=== PATIENT | female | born 1935 ===

== ENCOUNTER 2023-07-11 09:58 | Outpatient (REF) | payer MEDICARE, OTHER, SELFPAY | END 2023-07-11 09:59 | disposition home or self-care (01) | LOC: HO.HOSX 09:58 | PROVIDERS: Visit Provider Orthopaedic Surgery | DX: M25.561 Pain in right knee (principal); Z96.651 Presence of right artificial knee joint; Z79.899 Other long term (current) drug therapy | CPT/HCPCS: 73562; 99212 ==

== ENCOUNTER 2023-07-11 10:11 | Outpatient (AMB) | payer MEDICARE, OTHER, SELFPAY ==
--- NOTE | 2023-07-11 10:24 | A.OFFVIS_ITS ---
Intake Vital Signs 07/11/23 10:31 Height 5 ft 1 in Weight 133 lb BMI 25.1 Intake Visit Reasons: S [employer]- Rt Knee TKA 06/2021 Intake Note: Ketty an 88 year old female presents today as a new patient to re-establish care with Dr. Gutiérrez s/p right knee TKA on 07/19/21. Patient reports here today for a routine check up. States she is doing well, denies any pain or discomfort. She continues with her home exercise program. She does not take any medicines for discomfort. She reports mild intermittent discomfort in her right knee. She denies any fevers or chills. Allergies meperidine [From Demerol] Allergy (Verified 07/11/23 10:32) Unknown Medication List - Last Reconciled 07/11/23 by Paulino Gutiérrez MD amlodipine 5 mg PO DAILY gemfibrozil 600 mg PO BID levothyroxine 88 mcg PO DAILY levothyroxine (Synthroid) 75 mcg PO DAILY metoprolol succinate ER 50 mg PO DAILY [facility] Surgical History (Updated 07/11/23 @ 10:33 by IMAN Lowery) History of total right knee replacement Social History (Updated 07/11/23 @ 10:33 by IMAN Lowery) Patient Tobacco Use Status: Never used Tobacco Current occupational status: retired Physical Exam Vital Signs: BMI result Body Mass Index 25.1 Const Other: Well-nourished well-developed very friendly female awake alert and oriented x3 in no acute distress Extrem Other: Bilateral lower extremity examination shows good capillary refill, no skin lesions noted, normal sensation light touch Right knee examination shows that the surgical incision is well healed, no erythema, full active extension and flexion to 120 degrees, her patella tracks well Results Reviewed Results Reviewed: X-rays of the patient's right knee taken today show a total knee arthroplasty in good position with no signs of loosening, no acute bony abnormalities Assessment & Plan Assessment & Plan (1) Right knee pain: Code(s): M25.561 - Pain in right knee Plan Ms. Khoury continues to do well after undergoing right total knee replacement surgery on 07/19/2021. She will continue with her home exercise program. She does know to take antibiotics before any dental work. She will contact me prior to her annual follow-up appointment should any questions or concerns arise. I spent 22 minutes in reviewing the patient's records and imaging studies, seeing the patient and documenting in the medical record. Orders: Orders XR knee RT 3V Today M25.561 - Pain in right knee Coding Level of Care Code Est Pt Level 2 (94597) Diagnoses Right knee pain M25.561
[2023-07-11 10:31] VITALS: BMI 25.1
== END 2023-07-11 10:55 | disposition home or self-care (01) ==
PROVIDERS: Visit Provider Orthopaedic Surgery
DX: Z47.1 Aftercare following joint replacement surgery (principal); Z96.651 Presence of right artificial knee joint; M25.561 Pain in right knee
CPT/HCPCS: 99213